=== PATIENT | male | born 1985 | race Caucasian/White ===

== ENCOUNTER → 2016-08-23 | Outpatient (CLI) | payer OTHER | LOC: MMPC 09:00 | PROVIDERS: ATTEND Family Medicine | DX: M79.604 Pain in right leg (principal); F31.78 Bipolar disorder, in full remission, most recent episode mixed; E11.9 Type 2 diabetes mellitus without complications; H66.002 Acute suppurative otitis media without spontaneous rupture of ear drum, left ear | CPT/HCPCS: 99214; G0463 ==

== ENCOUNTER → 2016-10-11 | Outpatient (CLI) | payer OTHER | LOC: MMPC 09:00 | PROVIDERS: ATTEND Family Medicine | DX: R10.31 Right lower quadrant pain (principal); R10.32 Left lower quadrant pain; E11.9 Type 2 diabetes mellitus without complications; E66.09 Other obesity due to excess calories; F51.02 Adjustment insomnia; Z87.820 Personal history of traumatic brain injury; R03.0 Elevated blood-pressure reading, without diagnosis of hypertension | CPT/HCPCS: 99214; G0463 ==

== ENCOUNTER → 2016-11-22 | Outpatient (CLI) | payer OTHER ==
--- NOTE | 2016-11-22 15:08 | EKG ---
[address] [address] Measurements Intervals [place] Rate: 92 P: 63 TX: 140 QRS: 181 QRSD: 89 T: 47 QT: 332 QTc: 382 Interpretive Statements SINUS RHYTHM PATTERN CONSISTENT WITH PULMONARY DISEASE INFERIOR MYOCARDIAL INFARCTION [40+ ms Q WAVE AND/OR ST/T ABNORMALITY IN II/aVF], PROBABLY OLD WITH POSTERIOR EXTENSION [PROMIN No previous ECG available for comparison Electronically Signed On 11-22-16 16:44:54 MDT by Ok Humphrey MD [email or web address]
[2016-11-22 15:35] LABS: HEMATOCRIT 51.5 % (42.0-52.0); HEMOGLOBIN 18.1 g/dL (14.0-18.0); MEAN CORPUSCULAR HEMOGLOBIN 31.7 PG (27-31); MEAN CORPUSCULAR HGB CONC 35.1 g/dL (33-37); MEAN CORPUSCULAR VOLUME 90.2 FL (80-90); MEAN PLATELET VOLUME 9.3 FL (7.4-12.2); RED BLOOD COUNT 5.71 10^6/uL (4.70-6.10)
[2016-11-22 15:47] LABS: BLOOD UREA NITROGEN 12 mg/dL (7-22); BUN/CREATININE RATIO 13.33 (6-20); CALCIUM 10.4 mg/dL (8.7-10.7); EST GLOMERULAR FILTRATION > 60 (>60 ml/min/1.73m(2)); SERUM ALBUMIN 4.7 g/dL (3.5-4.8)
[2016-11-22 15:49] LABS: HEMOGLOBIN A1C 5.43 % (4.2-6.0)
== END ==
LOC: MOB LAB 14:56
PROVIDERS: ATTEND Family Medicine
DX: R07.2 Precordial pain (principal); E11.9 Type 2 diabetes mellitus without complications; I25.2 Old myocardial infarction; K21.9 Gastro-esophageal reflux disease without esophagitis
CPT/HCPCS: 36415; 80053; 83036; 83880; 84484; 85027; 85379; 93005; 93010